=== PATIENT | female | born 1980 | race Caucasian/White ===

== ENCOUNTER 2017-11-17 12:29 | Outpatient (CLI) ==
[2016-01-21 18:44] VITALS: BMI 19.1
--- NOTE | 2017-11-17 13:10 | DI ---
EXAM: Scoliosis series HISTORY: Back pain COMPARISON: None. TECHNIQUE: AP scoliosis series was performed. FINDINGS: Mild rightward curvature of the lower thoracic spine that is centered at T8-T9 and measure s 10 degrees using Cardoza technique. No vertebral body malformations identified. IMPERSSION: Mild rightward scoliosis thoracic spine.
== END 2017-11-17 12:30 | disposition home or self-care (01) ==
LOC: RAD 12:29
PROVIDERS: ATTEND Internal Medicine
DX: E55.9 Vitamin D deficiency, unspecified (principal); K21.9 Gastro-esophageal reflux disease without esophagitis; F17.210 Nicotine dependence, cigarettes, uncomplicated; M54.9 Dorsalgia, unspecified
CPT/HCPCS: 36415; 72082; 80053; 80061; 82306; 83036; 84443; 85025

== ENCOUNTER 2017-11-18 12:48 | Outpatient (CLI) ==
[2016-01-21 18:44] VITALS: BMI 19.1
--- NOTE | 2017-11-18 13:38 | CT ---
EXAM: CT lumbar spine without contrast HISTORY: Back pain COMPARISON: None TECHNIQUE: CT lumbar spine performed without intravenous contrast. Coronal and sagittal reformatted images obtained. FINDINGS: Vertebral bodies normal height. No fracture. Intervertebral disc space narrowing L5-S1. Facet arthrosis in the lower lumbar spine. 3 mm anterolisthesis of L5 on S1. Mild multilevel margina l osteophyte formation. Sacroiliac joints intact. No paravertebral soft tissue abnormality. T12-L1: No central canal or neural foraminal narrowing. L1-L2: No central canal or neural foraminal narrowing. L2-L3: No central canal or neural foraminal narrowing. L3-L4: No central canal or neural foraminal narrowing. L4-L5: No central canal or neural foraminal narrowing. L5-S1: Posterior disc osteophyte complex and facet arthrosis and anterolisthesis causing mild to mod erate right and mild left neural foraminal narrowing. IMPRESSION: Chronic discogenic degenerative disease and facet arthrosis. 3 mm anterolisthesis of L5 on S1. Please see segmental analysis.
== END 2017-11-18 12:49 | disposition home or self-care (01) ==
LOC: RAD 12:48
PROVIDERS: ATTEND Internal Medicine
DX: M54.9 Dorsalgia, unspecified (principal)

== ENCOUNTER 2018-03-30 22:51 | Emergency (ER) ==
[2018-03-30 23:06] VITALS: BP 138/87; TEMP 98.1; BMI 20.2
== END 2018-03-30 23:20 | disposition left against medical advice (07) ==
LOC: ED 22:51
DX: M54.6 Pain in thoracic spine (principal); M54.5 Low back pain

== ENCOUNTER 2018-03-30 23:14 | Outpatient (CLI) ==
[2018-03-30 23:06] VITALS: BMI 20.2
--- NOTE | 2018-03-31 08:31 | DI ---
EXAM: Radiographs, lumbar spine HISTORY: Lumbosacral spondylolisthesis. COMPARISON: 11/18/2017. TECHNIQUE: Four views. FINDINGS: Left convex curvature centered near L3 noted. There is approximately 0.4 cm anterolisthes is of L5 on S1 without abnormal motion on flexion or extension. Alignment otherwise normal. There is moderate loss of disc height at L5-S1. Disc heights are otherwise normal. Vertebral body heights a re maintained without fracture. Lower lumbar facet arthropathy noted. Since the prior study, there h as been no significant interval change. IMPRESSION: Stable degenerative changes at L5-S1 without abnormal motion.
== END 2018-03-30 23:15 | disposition home or self-care (01) ==
LOC: RAD 23:14
PROVIDERS: ATTEND Nurse Practitioner
DX: M43.17 Spondylolisthesis, lumbosacral region (principal)

== ENCOUNTER 2018-04-24 10:19 | Outpatient (RCR) ==
--- NOTE | 2018-04-25 15:31 | RS.OPPTEV2 ---
Date of Note: 04/24/18 Visit #: 1 Date of Evaluation: 04/24/18 Payer Source: Medicaid Surgery Performed?: No Treatment Diagnosis: Low back pain, with sciatica, spondylolisthesis History of Condition/Mechanism of Injury:: pt states she has had back pain x 2 yrs and has been getting worse. She reports no specific injury. Prior Level of Function.....Patient was independent with: ADL's, Self Care, Caregiving, Ambulation/Mobility, Community Integration/Access Functional Limitations: Sleep, Reaching, Pushing, Pulling, Lifting, Standing, Bending, Squatting, Ambulation Current Subjective/complaints:: pt states that she is having LBP which radiates into BLE R worse than L. States that staying in 1 position increases pain. Treatment Side (optional): N/A *Precautions: n/a Medical History Medical History: Unremarkable Smoking Status: Current every day smoker Hx Home Medications: advil Patient's Goals: decrease pain in lumbar spine. Pain Assessment - Pain Description Pain Location: low back and R SI radiating into BLE R >L Pain Description: Aching Pain Description: stabbing Current Pain Intensity: 4/10 Functional Outcome Measure Oswestry LBP: 27 (54%) - G Codes & Severity Modifier G Codes & Modifier: n/a Source of G Code score: n/a Observation - Observation Inspection: pt with R iliac crest higher as well as R PSIS elevated. R leg longer. Posture: Forward Head, Rounded Shoulders, Increased Thoracic Kyphosis, Decreased Lumbar Lordosis Handedness: Right Gait - Gait Pattern General Gait Pattern Observation: No Deviations/Normal General Range of Motion: WFL's Muscle Strength: WFL's - ROM Lumbar Flexion: Hand reach to feet Sidebending to Left: Reach to Proximal Fibular Head Sidebending to Right: Reach to Proximal Fibular Head Lumbar Spine ROM Limitations: Pain Comments: lumbar ROM WFL's with pain. Increased pain with ext and R sidebending - Strength Trunk Extension: 3- Fair- Trunk Flexion: 3+ Fair+ Trunk Lateral Flexion: 3 Fair - Special Tests LAURA Test: Negative Left, Negative Right SLR Test: Negative Left, Positive Right Donna's Sign Test: Negative Left, Negative Right SI Joint Compression: Positive SI Joint Distraction: Negative Palpation Palpation Findings: Tenderness, Trigger Point, Muscle Guarding Comments:: pt presents with tenderness, muscle guarding, and trigger points noted in lumbar spine especially at R SI joint. Sensation - Sensation Right Upper Extremity: Intact/Normal Left Upper Extremity: Intact/Normal Right Lower Extremity: Impaired Left Lower Extremity: Impaired Comments: pt presents with N/T B feet Balance - Sitting Balance Static Sitting Balance: Good Dynamic Sitting Balance: Good - Standing Balance Static Standing Balance: Good Dynamic Standing Balance: Good - Treatment Modality: Electrical Stim Unattended Parameters/Method Applied: IFC x 20 mins at 7v Treatment Area: lumbar and R SI joint Patient Position: Left Sidelying - Heat/Cryotherapy Treatment: Cryotherapy Comments:: lumbar Interventions - Exercise/Activities/Manual Therapy Exercises/Activities: pt performed prone lying, hamstring stretch, muscle energy techniques with hand on R knee with resisted flex on R , with ext on LLE Manual Therapy: n/a HOME EXERCISE PROGRAM: pt given written HEP including isometric hip add, muscle energy with R hip flex, L ext, as well as prone lying - Charges Timed Code Treatment Minutes: 49 Total Treatment Time: 67 Procedures billed for this date of service:: eval low, estim unsupported, cold pack EVALUATION COMPLEXITY LEVEL EVALUATION COMPLEXITY LEVEL: HISTORY: Low, EXAM OF BODY SYSTEMS: Medium, CLINICAL PRESENTATION: Medium, CLINICAL DECISION MAKING: Low Assessment Assessment: pt presents with lumbar pain radiating into BLE R worse than L. Patient Education: Home Exercise Program, Education of Plan of Care Rehab Potential: Good Short Term Goals Goal #1: pt rate pain < 4/10 with activity Goal to be met by: 05/08/18 Goal #2: Improve RLE hamstring flexibility to equal to LLE Goal to be met by: 05/08/18 Goal #3: pt independent with inital HEP Goal to be met by: 05/08/18 Goal #4: pt report being able to sleep x 4 hours uninterrupted Goal to be met by: 05/08/18 Skilled Nursing Goals Goal #1: pt report decreased pain with normal fermenter helper. Goal to be met by: 05/22/18 Goal #2: Improve lumbar ROM to WFL's with less pain. Goal to be met by: 05/22/18 Goal #3: pt report no radicular symptoms in BLE. Goal to be met by: 05/22/18 Goal #4: pt independent with HEP to maintain gains after dc Goal to be met by: 05/22/18 Plan - Treatment to be Provided Procedures: Therapeutic Exercises, Therapeutic Activity, Manual Therapy, Massage , Patient Education Modalities: Electrical Stimulation, Ultrasound/Phonophoresis, Cryotherapy, Hot Packs - Treatment Plan Frequency: 2 X week Duration: 4 weeks ORDER # VISITS AND/OR THROUGH DATE: 05/22/18 - Treatment Code (1) Low back pain Code(s): M54.5 - LOW BACK PAIN Qualifiers: Chronicity: chronic Back pain laterality: unspecified Sciatica presence: with sciatica Sciatica laterality: bilateral sciatica Qualified Code(s): M54.41 - Lumbago with sciatica, right side; M54.42 - Lumbago with sciatica, left side; G89.29 - Other chronic pain (2) Spondylolisthesis Code(s): M43.10 - SPONDYLOLISTHESIS, SITE UNSPECIFIED Qualifiers: Spinal region: lumbar Qualified Code(s): M43.16 - Spondylolisthesis, lumbar region (3) Sacroiliac dysfunction Code(s): M53.3 - SACROCOCCYGEAL DISORDERS, NOT ELSEWHERE CLASSIFIED
--- NOTE | 2018-05-03 15:46 | RS.OPPTDN ---
Subjective Date of Note: 05/02/18 Visit #: 2 Date of Evaluation: 04/24/18 Payer Source: Medicaid Treatment Diagnosis: Low back pain, with sciatica, spondylolisthesis Current Subjective/complaints:: Patient says she had soreness in her back after her eval, but felt relief with estim treatment. She also adds that she had to drive to [place] to help move some items for a friend and could have also had soreness from that as well. *Precautions: n/a Pain Assessment - Pain Description Pain Location: across the lumbar region - Treatment Modality: Electrical Stim Unattended Parameters/Method Applied: IFC to the lumbar paraspinals @ 10-11 ma x 20 mins Patient Position: Left Sidelying - Heat/Cryotherapy Treatment: Hot Pack (with estim) Interventions - Exercise/Activities/Manual Therapy Exercises/Activities: Patient received passive SKTC, Piriformis, Fig 4, HS, and lower trunk rotation x 3 bilaterally. She began trunk stability including isometric hip flexion/abd in hooklying, SLR, QS, and pillow squeezes x 10. She received education of her diagnosis, postural mechanics pertaining to household tasks. Reviewed HEP and explained modalities and exercises performed today. Total minutes of Exercise: 20 Manual Therapy: n/a HOME EXERCISE PROGRAM: pt given written HEP including isometric hip add, muscle energy with R hip flex, L ext, as well as prone lying - Charges Timed Code Treatment Minutes: 20 Total Treatment Time: 40 Procedures billed for this date of service:: hp, estim (un), ex Assessment: Patient appears to leticia all modalities and therex. She would benefit from continuing estim and therex to build core and postural strength. Patient Education: Education of diagnosis, Body/Joint mechanics, Home Exercise Program, Home Safety, Education of Plan of Care Short Term Goals Goal #1: pt rate pain < 4/10 with activity Goal to be met by: 05/08/18 Goal #2: Improve RLE hamstring flexibility to equal to LLE Goal to be met by: 05/08/18 Goal #3: pt independent with inital HEP Goal to be met by: 05/08/18 Goal #4: pt report being able to sleep x 4 hours uninterrupted Goal to be met by: 05/08/18 Framing Inspector Goals Goal #1: pt report decreased pain with normal telehealth coordinator. Goal to be met by: 05/22/18 Goal #2: Improve lumbar ROM to WFL's with less pain. Goal to be met by: 05/22/18 Goal #3: pt report no radicular symptoms in BLE. Goal to be met by: 05/22/18 Goal #4: pt independent with HEP to maintain gains after dc Goal to be met by: 05/22/18 Plan PLAN OF CARE EXPIRES ON:: 05/22/18 ORDER # VISITS AND/OR THROUGH DATE: 05/22/18 PLAN: Patient to continue PT sessions and consistently perform HeP to improve back pain
== END 2018-04-28 23:59 ==
PROVIDERS: ATTEND Nurse Practitioner
DX: M54.5 Low back pain (principal); M43.17 Spondylolisthesis, lumbosacral region

== ENCOUNTER 2018-04-25 11:23 | Outpatient (CLI) | END 2018-04-25 11:24 | disposition home or self-care (01) | LOC: RAD 11:23 | PROVIDERS: ATTEND Internal Medicine | DX: M47.9 Spondylosis, unspecified (principal); F17.210 Nicotine dependence, cigarettes, uncomplicated; Z68.23 Body mass index [BMI] 23.0-23.9, adult ==

== ENCOUNTER 2018-05-08 10:00 | Outpatient (RCR) ==
--- NOTE | 2018-05-04 15:03 | RS.OPPTDN ---
Subjective Date of Note: 05/04/18 Visit #: 3 Date of Evaluation: 04/24/18 Payer Source: Medicaid Treatment Diagnosis: Low back pain, with sciatica, spondylolisthesis Current Subjective/complaints:: Patient says she feels treatment helped. Reports her back has not been hurting as badly. 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 *Precautions: n/a - Treatment Modality: Electrical Stim Unattended Parameters/Method Applied: IFC @ 13-15ma x 20 mins to the lumbar paraspinals Patient Position: Left Sidelying - Heat/Cryotherapy Treatment: Hot Pack Interventions - Exercise/Activities/Manual Therapy Exercises/Activities: Pt receives passive stretching of: SKTC, HS, Piriformis, Trunk rotation, and Figure 4. She performs pillow squeezes, isometric hip abd/ flexion 2 x 10 reps. SLR x 10. Total minutes of Exercise: 19 Manual Therapy: n/a HOME EXERCISE PROGRAM: pt given written HEP including isometric hip add, muscle energy with R hip flex, L ext, as well as prone lying - Charges Timed Code Treatment Minutes: 19 Total Treatment Time: 39 Procedures billed for this date of service:: hp, estim (un), ex Assessment: Patient experiencing less back pain with treatment. She has had increased activity with work and bent over for prolonged period with less pain that expected. She appears to be responding to treatment well and should further improve with trunk and postural strengthening as well as modalities. Patient Education: Education of diagnosis, Body/Joint mechanics, Education of Plan of Care Patient demonstrates compliance with HEP?: Yes Short Term Goals Goal #1: pt rate pain < 4/10 with activity Goal to be met by: 05/08/18 Progress towards Goal:: Progressing Goal #2: Improve RLE hamstring flexibility to equal to LLE Goal to be met by: 05/08/18 Progress towards Goal:: Progressing Goal #3: pt independent with HEP Goal to be met by: 05/08/18 Progress towards Goal:: Progressing Goal #4: pt report being able to sleep x 4 hours uninterrupted Goal to be met by: 05/08/18 Shelter Goals Goal #1: pt report decreased pain with normal gang bore operator. Goal to be met by: 05/22/18 Goal #2: Improve lumbar ROM to WFL's with less pain. Goal to be met by: 05/22/18 Goal #3: pt with no radicular symptoms to BLE Goal to be met by: 05/22/18 Goal #4: pt independent with HEP to maintain gains after dc Goal to be met by: 05/22/18 Plan PLAN OF CARE EXPIRES ON:: 05/22/18 ORDER # VISITS AND/OR THROUGH DATE: 05/22/18 PLAN: Patient to continue to use modalities for pain and strengthening therex to the trunk and mid back.
--- NOTE | 2018-05-08 11:31 | RS.OPPTDN ---
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 She states she has spent prolonged periods stooped over and in awkward positions. *Precautions: n/a Pain Assessment - Pain Description Pain Location: Maintains pain across the low back at the waistline and primarily on the R side. - Treatment Modality: Electrical Stim Unattended Parameters/Method Applied: hivolt 4 small pads R side lower lumbar paraspinals controlled seperately from L @ 150 and 120 pk volts x 20 mins Patient Position: Left Sidelying - Heat/Cryotherapy Treatment: Hot Pack Interventions - Exercise/Activities/Manual Therapy Exercises/Activities: Pt continues for passive stretching of: SKTC, HS, Piriformis, Trunk rotation, and Figure 4. She performs ball squeezes, isometric hip flexion and hooklying hip abd with green tband 2 x 10 reps. SLR x 10. Bridging x 12. Educated on improved body mechanics when she is able to do this with her work duties. Total minutes of Exercise: 17 Manual Therapy: n/a HOME EXERCISE PROGRAM: pt given written HEP including isometric hip add, muscle energy with R hip flex, L ext, as well as prone lying - Charges Timed Code Treatment Minutes: 17 Total Treatment Time: 37 Procedures billed for this date of service:: hp, estim (un), ex Assessment: Patient with elevated upper, mid and lower back pain today related to recent prolonged positioning during this weekend. She has relief that lasts for several hours, but does increase when working on family's home. Patient expresses improved back pain and hip pain following treatment today. She indicates it is only at the R side and near the L4/L5 upon walking out. Patient Education: Body/Joint mechanics Patient demonstrates compliance with HEP?: Yes Short Term Goals Goal #1: pt rate pain < 4/10 with activity Goal to be met by: 05/08/18 Progress towards Goal:: Progressing Goal #2: Improve RLE hamstring flexibility to equal to LLE Goal to be met by: 05/08/18 Progress towards Goal:: Progressing Goal #3: pt independent with HEP Goal to be met by: 05/08/18 Progress towards Goal:: Progressing Goal #4: pt report being able to sleep x 4 hours uninterrupted Goal to be met by: 05/08/18 Correction Goals Goal #1: pt report decreased pain with normal global head advertiser solutions. Goal to be met by: 05/22/18 Goal #2: Improve lumbar ROM to WFL's with less pain. Goal to be met by: 05/22/18 Goal #3: pt with no radicular symptoms to BLE Goal to be met by: 05/22/18 Goal #4: pt independent with HEP to maintain gains after dc Goal to be met by: 05/22/18 Plan PLAN OF CARE EXPIRES ON:: 05/22/18 ORDER # VISITS AND/OR THROUGH DATE: 05/22/18 PLAN: Continue with therex to improve strength and modalities to ease back pain. Patient to use better body mechanics when applicable and perform HEP.
--- NOTE | 2018-05-11 10:49 | RS.CXNS ---
Date of scheduled appointment: 05/11/18 Type: Cancel
== END 2018-05-28 23:59 ==
PROVIDERS: ATTEND Nurse Practitioner
DX: M54.5 Low back pain (principal); M43.17 Spondylolisthesis, lumbosacral region